=== PATIENT | female | born 1970 | race Caucasian/White ===

== ENCOUNTER → 2016-07-17 | Outpatient (CLI) | payer BC | LOC: LAB 11:39 | PROVIDERS: Family Medicine | DX: M79.2 Neuralgia and neuritis, unspecified (principal); M79.1 Myalgia | CPT/HCPCS: 80053; 82180; 82550; 82607; 82746; 84439; 84443 ==

== ENCOUNTER → 2020-05-10 | Outpatient (CLI) | payer BC, OTHER ==
[~2020-05-10] MED LIST: OMEPRAZOLE40 MG PO; SIMVASTATIN20 MG PO
== END ==
LOC: KOH-I 09:36
DX: S83.511A Sprain of anterior cruciate ligament of right knee, initial encounter (principal); S83.411A Sprain of medial collateral ligament of right knee, initial encounter; S83.521A Sprain of posterior cruciate ligament of right knee, initial encounter; S80.01XA Contusion of right knee, initial encounter; M25.461 Effusion, right knee
CPT/HCPCS: 73721

== ENCOUNTER → 2020-06-14 | Outpatient (CLI) | payer BC, OTHER ==
[2020-06-14 11:05] LABS: RED BLOOD COUNT 4.67 M/UL (4.00-5.10); WHITE BLOOD COUNT 8.7 K/UL (4.5-11.0)
[2020-06-14 12:29] LABS: BUN/CREATININE RATIO 15 (0-10)
== END ==
LOC: LAB 08:43
PROVIDERS: Nurse Practitioner
DX: I10 Essential (primary) hypertension (principal); E78.5 Hyperlipidemia, unspecified
CPT/HCPCS: 36415; 80053; 80061; 85027

== ENCOUNTER → 2020-07-08 | Day surgery (SDC) | payer BC, OTHER ==
[~2020-07-08] VITALS: Ht 165.1 cm; Wt 93.0 kg
== END | disposition home or self-care (01) ==
LOC: OR 07-01 07:30
DX: S83.511A Sprain of anterior cruciate ligament of right knee, initial encounter (principal); S83.521A Sprain of posterior cruciate ligament of right knee, initial encounter; S83.411A Sprain of medial collateral ligament of right knee, initial encounter; E78.5 Hyperlipidemia, unspecified; K21.9 Gastro-esophageal reflux disease without esophagitis; Z88.0 Allergy status to penicillin; Z88.2 Allergy status to sulfonamides; Z79.899 Other long term (current) drug therapy; X58.XXXA Exposure to other specified factors, initial encounter; Y93.23 Activity, snow (alpine) (downhill) skiing, snowboarding, sledding, tobogganing and snow tubing
CPT/HCPCS: C1713; J0171; J1100; J1885; J2001; J2250; J2405; J2704; J2795; J3010; J7120

== ENCOUNTER → 2020-12-14 | Outpatient (CLI) | payer BC ==
[2020-12-14 09:30] LABS: HEMOGLOBIN 14.5 gm/dl (12.3-15.3); RED BLOOD COUNT 4.67 M/UL (4.00-5.10); WHITE BLOOD COUNT 8.4 K/UL (4.5-11.0)
[2020-12-14 10:17] LABS: BUN/CREATININE RATIO 13 (0-10)
== END ==
LOC: LAB 07:58
PROVIDERS: Nurse Practitioner Family
DX: E78.5 Hyperlipidemia, unspecified (principal); F41.9 Anxiety disorder, unspecified
CPT/HCPCS: 36415; 80053; 80061; 81001; 84439; 84443; 85025